=== PATIENT | female | born 1960 | race Caucasian/White ===

== ENCOUNTER 2017-03-18 10:32 | Inpatient (IN) | payer MEDICARE ==
--- NOTE | ~2017-03-18 | CN ---
Consultation Report [facility] [address] [place]. [address] NAME: DUGLAS HOWELL : 62 STATUS : ADM IN PAT#: [id number] AGE: 56 ADM/REG DATE : 03/18/17 MR#: [id number] REPORT SERV DATE: 03/18/17 DICTATED BY: ISAI CRUM DATE: 03/18/17 REPORT STATUS : Draft TRANSCRIBED BY: EVELYN DATE: 03/18/17 CONSULTATION. DATE OF CONSULTATION: 03/18/2017 REASON FOR CONSULT: Diabetes management. HISTORY OF PRESENT ILLNESS: This is a 56-year-old female with medical history of diabetes mellitus type 1, on insulin therapy, hypertension, dyslipidemia who presented to [facility] with complaints of chest pain. The patient was found to have elevated troponins and EKG changes concerning for NSTEMI. The patient was started on heparin therapy and transferred to [facility] in [place] for further evaluation. On arrival at [facility], the patient had a cardiac catheterization that shows multivessel coronary disease and was recommended to have a coronary artery bypass surgery. The Hospitalist Service was consulted to help manage diabetes. The patient reports she was diagnosed with diabetes several years ago. She had history of gestational diabetes several years after her last . She was found to have progressive elevated blood sugar, was started on metformin and Glucophage. The patient reports that blood sugar continued to remain elevated. She was transition from p.o. oral hypoglycemic to subcutaneous insulin. The patient reported that she takes Lantus insulin and exenatide at home for blood sugar control. She reports that her blood sugar ranges in the 150s to 200s at home. She denies any hypoglycemic symptoms. However, she endorses a history of polydipsia and nocturia. No reported significant weight loss. PAST MEDICAL HISTORY: 1. Diabetes mellitus type 2. 2. Hypertension. 3. Dyslipidemia. FAMILY HISTORY: Significant for coronary artery disease in a brother who was diagnosed when he was in his 40s. SOCIAL HISTORY: Denies smoking cigarettes, drinking alcohol, or illicit drug use. ALLERGIES: NO KNOWN DRUG ALLERGIES. HOME MEDICATIONS: 1. Lantus insulin 25 units at bedtime. 2. Bydureon extended release injection 2 mg subcutaneously q.7 days, last taken 03/11/2017. 3. Gabapentin 600 mg p.o. at bedtime. 4. Hydrochlorothiazide 25 mg p.o. daily. 5. Lisinopril 5 mg p.o. daily. Consultation Report [place] [address] [place]. [address] NAME: DUGLAS HOWELL : 62 STATUS : ADM IN PAT#: [id number] AGE: 56 ADM/REG DATE : 03/18/17 MR#: [id number] REPORT SERV DATE: 03/18/17 DICTATED BY: ISAI CRUM DATE: 03/18/17 REPORT STATUS : Draft TRANSCRIBED BY: MODFlor DATE: 03/18/17 6. Meloxicam 50 mg p.o. daily. 7. Simvastatin 40 mg p.o. daily. REVIEW OF SYSTEMS: A 12-point review of systems conducted, essentially negative. PHYSICAL EXAMINATION: VITAL SIGNS: Blood pressure 145/87, temperature 97.6, pulse 70 beats per minute, respiratory rate 20 cycles per minute. GENERAL: Not in any acute distress. HEENT: Extraocular muscles intact. Pupils equal, round, and reactive. Not pale. Anicteric. Neck supple. Oral mucosa moist. CHEST: Bilaterally symmetrical. Nontender. LUNGS: Clear to auscultation bilaterally. CARDIOVASCULAR: Regular rate and rhythm. S1, S2. No murmur, no rubs, no gallops. ABDOMEN: Obese, soft, nontender. EXTREMITIES: Lower extremities, no pedal edema. LABORATORY TEST: Glucose 271. Hematology: WBC 11.1, hemoglobin 13.2, hematocrit 41.2, platelets 244. Chemistry: Sodium 128, potassium 4.4, chloride 90, bicarb 20, creatinine 1.01, BUN 30, GFR 73, glucose , calcium 9.1, anion gap 23. Alkaline phosphatase 32, ALT 20, bilirubin 0.4. Please note that this above dictated laboratory data was from [facility]. No repeat labs at this time. ASSESSMENT AND PLAN: Diabetes mellitus type 2, on subcutaneous insulin therapy at home with hyperglycemia. Presently the patient's blood sugar has gradually trended down into the 150s. At this point, I will recommend to discontinue Bydureon and Lantus. We will switch patient to Levemir 18 units b.i.d., aspart 5 units t.i.d. with a level 2 corrective sliding scale. I will also recommend the patient's blood sugar to be monitored a.c. plus h.s., hypoglycemia protocol and placed on ADA 1800 calorie diet. The patient's labs, chemistry, compressive metabolic panel, CBC, and HbA1c will be repeated now. The Hospitalist Service will be happy to continue to follow the patient during the course of this admission for diabetes management. Thank you very much for this consult. IOO/MODL Isai Crum MD / [id number]
--- NOTE | ~2017-03-18 | CN ---
Consultation Report [facility] [address] [place]. [address] NAME: DUGLAS HOWELL : 62 STATUS : ADM IN PAT#: [id number] AGE: 56 ADM/REG DATE : 03/18/17 MR#: [id number] REPORT SERV DATE: 03/18/17 DICTATED BY: YENIFER BOONE DATE: 03/18/17 REPORT STATUS : Draft TRANSCRIBED BY: MODL DATE: 03/18/17 CONSULTATION DATE OF CONSULTATION: 03/18/2017 REASON FOR CONSULTATION: Recent non-ST elevation myocardial infarction, three-vessel coronary artery disease, consideration for urgent coronary artery bypass grafting. HISTORY OF PRESENT ILLNESS: This is a 56-year-old obese diabetic white female with history of hypertension, hyperlipidemia, and positive family history as risk factors for coronary artery disease. She reports that over the past several months, she has had exertional symptoms of chest discomfort, tightness, and pressure and discomfort in her shoulders. This resolves with rest. She admits to one episode of chest discomfort that awakened her. On the date of admission, she was walking and experienced chest discomfort with crescendo pain that was unrelieved with rest. When the pain continued past one and half hours, she drove herself to the emergency department at [facility], and there had EKG and lab work done that showed troponin I was elevated. She was hospitalized, Cardiology consultation was obtained, and echocardiography showed normal left ventricular function with ejection fraction 55%, trivial mitral and tricuspid regurgitation, trileaflet aortic valve, and left ventricular hypertrophy. She was transferred to [facility] for coronary arteriography today and this demonstrated significant flow-limiting three-vessel coronary artery disease, and we were asked to see for possible urgent coronary artery bypass grafting at this admission. This was discussed with the patient at length today. PAST MEDICAL HISTORY: 1. Insulin-dependent diabetes mellitus type 2. 2. Hypertension. 3. Hyperlipidemia. 4. Remote history of smoking one pack per day for 10 years, but quit 25 years. PRIOR SURGICAL HISTORY: Significant for cholecystectomy, appendectomy, hysterectomy, right total knee arthroplasty, anterior and posterior lumbar fusion, and recent excision of sebaceous cysts from her back. ALLERGIES: NONE KNOWN. MEDICATIONS: Include Bydureon extended release injection 2 mg subcu every 7 days, gabapentin 600 mg p.o. at bedtime, hydrochlorothiazide 25 mg p.o. daily, Lantus Insulin 25 units subcu at bedtime, lisinopril 5 mg p.o. daily, meloxicam 15 mg p.o. daily, multivitamins one tablet p.o. daily, Zocor 40 mg p.o. daily. Today, she had Lipitor added and nitroglycerin paste. SOCIAL HISTORY: She is , one daughter, and patient is currently a student in [employer]. She is a former smoker 1 pack per day for approximately 10 years, quit 25 years ago, does not use alcohol or illicits. Consultation Report [place] [id number] [place]. [address] NAME: DUGLAS HOWELL : 62 STATUS : ADM IN [facility]#: [id number] AGE: 56 ADM/REG DATE : 03/18/17 MR#: [id number] REPORT SERV DATE: 03/18/17 DICTATED BY: YENIFER BOONE DATE: 03/18/17 REPORT STATUS : Draft TRANSCRIBED BY: EVELYN DATE: 03/18/17 FAMILY HISTORY: Significant for brother with myocardial infarction at age 36. REVIEW OF SYSTEMS: GENERAL: Negative for any recent weight change, fevers, chills, or night sweats. Positive for excessive fatigue, exercise intolerance. ENT: Negative for diminished vision. Negative for cataracts or glaucoma. She denies any tinnitus or reduced auditory acuity. Denies dental problems. Denies any difficulty eating, chewing, or swallowing. RESPIRATORY: Positive for recent shortness of breath with her chest discomfort. Negative for lung problems. Negative for hemoptysis or chronic cough. CV: Positive for chest pain, negative for palpitations, negative for syncope or near syncope. Negative for heart murmur. Denies any feet or leg swelling. GI: Negative. : Negative. MUSCULOSKELETAL: Positive for her back surgery. Positive for right knee replacement. Otherwise, negative. ENDOCRINE: Positive for diabetes with insulin. Negative for thyroid problems. HEME/ONC: Negative. NEURO: Negative for syncope, near syncope. Negative for tremors. Negative for stroke or TIA symptoms. PHYSICAL EXAMINATION: GENERAL: She is a pleasant, obese white female, in no acute distress. VITAL SIGNS: Her height is 160.02 cm, weight 99.79 kg. Vital signs show blood pressure 168/82, temperature is 97.6, pulse 57 and regular, respirations 20 regular and unlabored, saturation 97% on 2 liters nasal cannula. HEENT: Normocephalic, atraumatic. Pupils are equal, round, and reactive to light and accommodation. Sclerae are clear, conjunctivae pink. Oral and buccal mucosa are pink and moist, and teeth are in good condition. Mallampati class 3 airway. NECK: Supple. No restricted range of motion. No carotid bruits. No jugular venous distention. CHEST: No deformity, no chest wall tenderness. Breath sounds are clear and equal bilaterally. BREASTS: Not examined. CV: Regular rate and rhythm without murmur or rub. No lower extremity edema or varicosities. ABDOMEN: Soft, obese, nontender with normoactive bowel sounds. No hepatosplenomegaly. /RECTAL: Declined. MUSCULOSKELETAL: No kyphoscoliosis, no asymmetry. NEUROLOGIC: She is alert and oriented to day, date, and situation. Speech is clear, fluent. No focal neurologic deficits, no tremors. SKIN, HAIR, AND NAILS: No lesions, masses, or rashes other than two sutured incisions in the mid back. Consultation Report [place] [id number] [facility] [place]. [address] NAME: DUGLAS HOWELL : 62 STATUS : ADM IN [facility]#: [id number] AGE: 56 ADM/REG DATE : 03/18/17 MR#: [id number] REPORT SERV DATE: 03/18/17 DICTATED BY: YENIFER BOONE DATE: 03/18/17 REPORT STATUS : Draft TRANSCRIBED BY: EVELYN DATE: 03/18/17 DATA: Her coronary arteriogram which I reviewed today showing three-vessel flow-limiting coronary artery disease. Echocardiogram results as above. Her EKG shows normal sinus rhythm and is otherwise normal. Troponin I at [place] was 3.86. Labs in [place] include hyponatremia of 128, potassium 4.6, CO2 of 20, chloride is 90, BUN 30, creatinine 1.01 and nonfasting glucose of 275. CBC shows WBCs slightly elevated 11.1, hemoglobin 13.2 g, hematocrit 41.2%, and platelets 224,000. IMPRESSION: Recent non-ST elevation myocardial infarction in a 56-year-old diabetic female with several risk factors for coronary artery disease. We were asked to see for possible coronary artery bypass grafting. This was discussed at length with the patient today. We talked about the surgery, usual perioperative course, indications, benefits, and serious risks which include but are not limited to, things such as bleeding, need for blood or blood product transfusion and their attendant risks, damage to the kidneys including kidney failure and dialysis, damage to the liver or the lungs, heart attack, stroke, abnormal heart rhythm, infection including deep sternal infection, mediastinitis, and even . The patient indicates her understanding and is willing to proceed. Tentatively, we will plan on doing her surgery Tuesday or Tuesday this coming week. Using [employer] database, risk profile was calculated that showed predicted risk of mortality is 0.812, morbidity or mortality 10.54%, and this was shared with the patient today. We appreciate very much the opportunity to participate in her care, and we will follow with you. DICTATED BY: Danya Oliveros/EVELYN Yenifer Boone M.D. / [id number] CC: MD Darrell Bowman M.D.
--- NOTE | ~2017-03-18 | DS ---
Discharge Summary [facility] [address] [place]. [address] NAME: DUGLAS HOWELL : 62 STATUS : DIS IN PAT#: [id number] AGE: 56 ADM/REG DATE : 03/18/17 MR#: [id number] REPORT SERV DATE: 04/05/17 DICTATED BY: KESHA BAKER DATE: 04/04/17 REPORT STATUS : Draft TRANSCRIBED BY: MODFlor DATE: 04/04/17 Data Collection from hospitalization DISCHARGE DIAGNOSES: 1. Coronary artery disease, status post coronary artery bypass grafting. 2. Hypertension. 3. Hyperlipidemia. 4. Diabetes mellitus. 5. Obesity. CONSULTATIONS: 1. Abebe Boone M.D. 2. Isai Bruce MD. PROCEDURES PERFORMED: 1. Cardiac catheterization on 03/18/2017. 2. Urgent coronary artery bypass grafting x5 with left internal mammary artery to the left anterior descending artery, reverse saphenous vein graft placed to the second diagonal, reverse vein graft placed to the second obtuse marginal, reverse saphenous vein graft sequenced to the posterior descending artery and posterolateral branch vessel; endoscopic vein harvest of the saphenous vein from the right leg; transesophageal echocardiography on 03/22/2017. 3. Carotid blood flow study on 03/19/2017. MEDICATIONS: Vitamin C 1000 mg twice a day, aspirin 81 mg daily, Lipitor 40 mg at bedtime, Coreg 3.125 mg twice a day, Bydureon 2 mg subcutaneously every seven days, Neurontin 600 mg at bedtime, Lantus 18 units subcutaneously twice a day, Prinivil 5 mg daily, multivitamins one tablet daily, Percocet 10/325 half to one tablet every four hours as needed, and Senokot two tablets twice a day as needed. She was instructed not to continue hydrochlorothiazide, Zocor, or Mobic. CONDITION AT DISCHARGE: Stable. DISPOSITION: The patient was discharged home on an 1800-calorie, low-cholesterol, low- sodium, mechanical soft diet with activities as instructed. She would follow up with John Rivas on 05/26/2017. She would follow up with Dr. Emeterio Fischer on 05/06/2017. She would follow up with Dr. Darrell Contreras Jr, on 04/06/2017. She would undergo outpatient diabetic education as instructed. HOSPITAL COURSE: This is a 56-year-old obese diabetic female who has a history of hypertension, hyperlipidemia, and a positive family history as risk factors for coronary artery disease. She said that over the past several months she has had exertional symptoms of chest discomfort, tightness, and pressure as well as discomfort in her shoulders. This would resolve with rest. She did admit to one episode of chest discomfort that awakened her. On the date of this admission, she was walking and experienced chest discomfort with crescendo pain that was unrelieved with rest. When the pain was continued past one and half hours, she drove herself to the emergency department at [facility], and there had an EKG and lab work done which revealed troponin I was elevated. She was hospitalized and cardiac Discharge Summary [address] [address] NAME: DUGLAS HOWELL : 62 STATUS : DIS IN PAT#: [id number] AGE: 56 ADM/REG DATE : 03/18/17 MR#: [id number] REPORT SERV DATE: 04/05/17 DICTATED BY: KESHA BAKER DATE: 04/04/17 REPORT STATUS : Draft TRANSCRIBED BY: EVELYN DATE: 04/04/17 consultation had been obtained and echocardiography showed normal left ventricular function with an ejection fraction of 55%, trivial mitral and tricuspid regurgitation, trileaflet aortic valve and left ventricular hypertrophy. It was felt that she would need to undergo coronary arteriography. She was transferred to [facility] and admitted for further evaluation and treatment. Upon admission, she was taken to the cardiac cardiac catheterization technician where she underwent the above- mentioned procedure by Dr. Cadena. She tolerated this well, and there were no complications. Following this, she was seen by Dr. Abebe Boone. Coronary arteriography demonstrated significant flow-limiting three-vessel coronary artery disease. It was felt that the patient would need to undergo possible urgent coronary artery bypass grafting. The patient was also seen by Dr. Isai Bruce regarding diabetes management. She had been diagnosed with diabetes several years ago. She had a history of gestational diabetes several years after her last . She was found to have progressive elevated blood sugars. She had been started on metformin and Glucophage. She reports that her blood sugars continued to remain elevated. She was transitioned from oral hypoglycemic to subcutaneous insulin. She reported that she takes Lantus insulin and Exenatide at home for blood sugar control. She said that her blood sugars range in the 150s to 200s at home. She denied any hypoglycemic symptoms. She does have a history of polydipsia and nocturia. Bydureon and Lantus were discontinued. The patient was switched to Levemir. The next day, she had no new complaints. She had no edema. Heparin drip continued. She remained on aspirin and beta-kinsey. We encouraged her to ambulate. A carotid blood flow study was performed. VIDHI inhibitor was continued. Plans were being made to proceed with surgical intervention. Hemoglobin A1c was 11.1. On 03/22/2017, she was taken to the operating room by Dr. Abebe Boone where she underwent the above-mentioned procedure. She tolerated this well, and there were no complications. On postop day #1, she was in a normal sinus rhythm. She had no edema. Her incisions looked okay. Chest tubes were going to be removed. White count was 17.6. She did have an episode of emesis that morning. She was being transitioned to Levemir and NovoLog and sliding scale insulin. She underwent diabetes education. The next day, she was up sitting in a chair. She said she felt well. She was ambulating and eating okay. We encouraged her to mobilize and use incentive spirometry. Diabetes education continued. On 03/25/2017, she had no chest pain, nausea, or vomiting. Aspirin, statin agent, beta-kinsey, and VIDHI inhibitor were continued. She was ambulating well. She had no edema. Her incisions looked okay. Discharge instructions were given. Due to her improved and stable condition, she was discharged home with the above-stated instructions. Information collected by: Annette Bishop I submit the above information as my discharge summary. TG/MODL Kesha Baker MD / [id number] Discharge Summary [address] [address] NAME: DUGLAS HOWELL : 62 STATUS : DIS IN PAT#: [id number] AGE: 56 ADM/REG DATE : 03/18/17 MR#: [id number] REPORT SERV DATE: 04/05/17 DICTATED BY: KESHA BAKER DATE: 04/04/17 REPORT STATUS : Draft TRANSCRIBED BY: EVELYN DATE: 04/04/17 CC: MD Darrell Bowman M.D. James Zellner, M.D.
--- NOTE | ~2017-03-18 | OP ---
Record Of Operation [facility] [address] [place]. [address] NAME: DUGLAS HOWELL : 62 STATUS : ADM IN PAT#: [id number] AGE: 56 ADM/REG DATE : 03/18/17 MR#: [id number] REPORT SERV DATE: 03/23/17 DICTATED BY: YENIFER BOONE DATE: 03/22/17 REPORT STATUS : Draft TRANSCRIBED BY: MODL DATE: 03/22/17 DATE OF PROCEDURE: 03/22/2017 PREOPERATIVE DIAGNOSES: 1. Coronary artery disease with jrt-US-gygihhvqt myocardial infarction. 2. Type 2 insulin-dependent diabetes mellitus. 3. Hypertension. 4. Hyperlipidemia. 5. Morbid obesity (BMI greater than 40). POSTOPERATIVE DIAGNOSES: 1. Coronary artery disease with gap-FD-lgyttxutj myocardial infarction. 2. Type 2 insulin-dependent diabetes mellitus. 3. Hypertension. 4. Hyperlipidemia. 5. Morbid obesity (BMI greater than 40). PROCEDURES PERFORMED: 1. Urgent coronary artery bypass grafting x5, left internal mammary artery placed to left anterior descending, reverse saphenous vein graft placed to the second diagonal, reverse saphenous vein graft placed to the second obtuse marginal, reverse saphenous vein graft sequenced to the posterior descending artery and posterolateral branch vessel. 2. Endoscopic vein harvest, saphenous vein from the right leg. 3. Transesophageal echocardiography. SURGEON: Yenifer Boone M.D. ASSISTANTS: Godfrey Vargas and Dayron Lewis. ANESTHESIA: General with Dr. Roberson. NIGHT TIME BABYSITTER: Dr. Holland and Dr. Emeterio Fischer. INDICATION: This is a 56-year-old hypertensive, diabetic, obese female, who presented to the emergency room with chest pain that began 24 hours prior to presentation on 03/17/2017 at [facility]. There was heaviness in the discomfort and radiation to her arms and neck. There were some diaphoresis and dyspnea. Chest discomfort would worsen with exertion, but then resolve with rest. She came to the emergency room because she started having chest pain even at rest. In the emergency room at [facility], her cardiac isoenzymes were elevated. She had no ST elevation and she was admitted with non-ST elevation myocardial infarction and medically stabilized. She was then transferred to [facility] for urgent cardiac catheterization. This was performed and demonstrated significant and diffuse three-vessel coronary artery disease. Ventricular function was good with an ejection fraction of greater than 55%. No significant valvular pathology. We were asked to see the patient for possible urgent revascularization. Echocardiography demonstrated moderate Record Of Operation [address] [address] NAME: DUGLAS HOWELL : 62 STATUS : ADM IN PAT#: [id number] AGE: 56 ADM/REG DATE : 03/18/17 MR#: [id number] REPORT SERV DATE: 03/23/17 DICTATED BY: YENIFER BOONE DATE: 03/22/17 REPORT STATUS : Draft TRANSCRIBED BY: MODL DATE: 03/22/17 hypokinesis in the apicolateral segment. Hemoglobin A1c was markedly elevated at 11. We discussed possible coronary bypass grafting with the patient and family, and they wished to proceed. STS predicted mortality of less than 1%, morbidity mortality of 11% were discussed with the family. FINDINGS AT OPERATION: 1. Cross-clamp time of 74 minutes, total pump time 85 minutes. 2. LAD was a 1.5 mm heavily diseased vessel. A 2.5 mm BOYER was anastomosed to it with fair runoff. 3. The second diagonal was 1.5 mm and heavily diseased. A 3.5 mm RSVG was anastomosed to it with fair runoff. 4. The second obtuse marginal was 1.5 mm and also heavily diseased. A 3.5 mm RSVG was anastomosed to it with rather poor runoff. This vessel had calcific changes and had bypass very distally. 5. The posterior descending artery was 0.5 mm moderately diseased. A 4 mm RSVG was anastomosed to it in a drfm-cy-jowp fashion with good runoff. 6. The posterolateral branch vessel was less than 1.5 mm and mildly diseased. The end of the same 4 mm RSVG was anastomosed to it with fair runoff. 7. All targets were small and diffusely diseased with calcific atherosclerosis. 8. The vein quality was good and all grafts had good Doppler signal at the end of the case. 9. AIDAN demonstrated good ventricular function at the end of the operation. There was no surgically significant valvular pathology. PATHOLOGIC SPECIMENS: None. DESCRIPTION OF PROCEDURE: The patient was brought to the operating suite where general anesthesia was induced. Airway was secured with an endotracheal tube. Lines secured by Anesthesia. Love catheter was placed. The patient's chest, abdomen, groin, and legs prepped with Hibiclens and ChloraPrep and draped with Ioban sterile sheets. AIDAN probe was placed by Dr. Roberson and examination carried out as discussed above. The saphenous vein was harvested from the right leg using endoscopic technique. Briefly, the vein was cut directly down upon through 2-cm incision placed medial aspect of the right knee. Then, using VasoView trocars, the vessel was dissected from the surrounding subcutaneous tissue and fat. The side branches were identified, ligated, and divided with cautery. Once adequate length of vein had been dissected, a counterincision was made up in the groin and in the lower leg where the vein was ligated, divided, and brought through the knee incision. The vein quality was good and the leg was made hemostatic and closed in layers of absorbable suture and skin closed in subcuticular fashion. Then, a midline sternal incision was made and the sternum opened with a saw. The left hemithorax was elevated and the endothoracic fascia was incised. Side branches of the STEFANIE were clipped and divided. Once the STEFANIE was completely dissected, the patient was anticoagulated with heparin and chest tube placed in the left pleural cavity. The STEFANIE was clipped and divided distally. There was good flow through the STEFANIE and its pedicle was infiltrated with papaverine. Record Of Operation [facility] [address] [place]. [address] NAME: DUGLAS HOWELL : 62 STATUS : ADM IN [facility]#: [id number] AGE: 56 ADM/REG DATE : 03/18/17 MR#: [id number] REPORT SERV DATE: 03/23/17 DICTATED BY: YENIFER BOONE DATE: 03/22/17 REPORT STATUS : Draft TRANSCRIBED BY: MODL DATE: 03/22/17 Next, the Gilbert retractor was placed and the pericardium opened from the innominate vein to the diaphragm. It was T'd and tacked to side of the chest wall. Cannulation pursestring sutures were placed and cannulation was carried out in routine manner. A retrograde cardioplegia cannula was placed in the coronary sinus. When all was in readiness, the patient was placed on cardiopulmonary bypass. The distal targets were marked out on the heart as described in the findings. The amount of calcification in the small vessels and distal extent of calcification was remarkable. Then, a heart support was placed. The aorta was crossclamped and an initial dose of cold blood cardioplegia solution was given in a combination of antegrade and retrograde fashion, then in a retrograde manner following proximal anastomoses. Following the first dose cardioplegia, the heart was positioned for the PDA graft. Arteriotomy was made. The vein graft was brought to the field as planned for sequential grafting and opened proximally. A [id number] saphenous coronary anastomosis was constructed with 7-0 Prolene. Then, the posterolateral branch vessel was opened. The end of the sequential graft was fashioned for this site and anastomosed it in an end-to-side fashion with a running suture of 7-0 Prolene. This vein graft was then measured to the right side of the ascending aorta where it was divided. We then positioned the heart for the obtuse marginal graft. Another arteriotomy was made and the vein graft trimmed and anastomosed to it with 7-0 Prolene. This vein graft was measured back to the left side of the ascending aorta, where it was divided. Next, the proximal ends of the two vein grafts were anastomosed to 4.5 mm punch aortotomy with 6-0 Prolene. Another dose of cardioplegia was given and we positioned the heart for the diagonal graft. Arteriotomy was made. The vein graft trimmed and anastomosed to it with 7-0 Prolene. This vein graft was measured back to the left side of the ascending aorta where it was divided and later anastomosed to a 4.5 mm punch aortotomy with 6-0 Prolene. We then positioned the heart for the LAD graft. Warming was begun. Arteriotomy was made in the soft spot at the mid to distal LAD. The LAD was calcified along its epicardial surface of the heart. The STEFANIE was then brought out of the left chest through a notch in the pericardium. The STEFANIE was opened and anastomosed to the LAD with running suture of 8-0 Prolene. The endothoracic fascia was tacked to the epicardium. The patient was placed in Trendelenburg and final dose of warm blood cardioplegia was given in a retrograde fashion. Ventricular and atrial pacing wires were placed. Following the last dose of cardioplegia and deairing of the aorta, the aortic cross clamp was removed. The distal and proximal anastomoses were inspected and made hemostatic. Doppler demonstrated good flow through the grafts. The patient resumed a sinus rhythm spontaneously. Ventilation was begun. When the heart demonstrated good contractility, it was allowed to fill and eject. When deairing was completed, the patient was taken out of Trendelenburg and the ascending aortic vent removed and these pursestring sutures tied and reinforced. The patient was then weaned from cardiopulmonary bypass with minimal inotropic support. The Record Of Operation [facility] [id number] [place]. [address] NAME: DUGLAS HOWELL : 62 STATUS : ADM IN PAT#: [id number] AGE: 56 ADM/REG DATE : 03/18/17 MR#: [id number] REPORT SERV DATE: 03/23/17 DICTATED BY: YENIFER BOONE DATE: 03/22/17 REPORT STATUS : Draft TRANSCRIBED BY: EVELYN DATE: 03/22/17 venous cannula was removed and these pursestring sutures tied. AIDAN examination demonstrated good ventricular function with no significant valvular pathology. Protamine was then administered by Anesthesia and following a period of hemodynamic stability, the aortic cannula was removed and these pursestring sutures tied and reinforced. The patient continued to do well and chest irrigated copiously with saline. Meticulous hemostasis was obtained. Hemasorb was placed along the cut edge of the sternum. Once hemostasis was assured, the pericardium was draped over the anterior surface of the heart and tacked into position. Doppler demonstrated good flow through the grafts following protamine administration. Then, chest tubes were placed and the sternum reapproximated with eight sternal wires. The clavipectoral fascia and linea alba were closed with #1 Stratafix. The subcutaneous tissue was closed with Stratafix and the skin closed in subcuticular fashion. The patient tolerated the procedure well. There were no complications. Sponge and needle counts were correct. DISPOSITION: The patient left intubated, sedated, and transported to the intensive care unit in stable condition. SEVERINO/EVELYN Yenifer Boone M.D. / [id number] CC: MD Darrell Bowman M.D. Emeterio Fischer M.D. Salvador Holland MD
[2017-03-18] MEDS ORDERED: BYDUREON2 MG SQ (14:56)
[2017-03-18] MEDS ORDERED: HYDROCHLOROT25 MG PO (14:57)
[2017-03-18] MEDS ORDERED: LANTUS SC (14:57)
[2017-03-18] MEDS ORDERED: NEUR600 PO (14:57)
[2017-03-18] MEDS ORDERED: ZOCOR40 PO (14:58)
[2017-03-18] MEDS ORDERED: MOBIC15 MG PO (14:58)
[2017-03-18] MEDS ORDERED: PRIN5 PO (14:58)
[2017-03-18] MEDS ORDERED: MULTIPLE VIT PO (15:00)
[2017-03-18 18:19] LABS: INTERNATIONAL NORMAL RATI 1.2 UNITS (-); PROTIME (NOT ORD) 15.5 SEC (12.0-14.5)
[2017-03-18 18:34] LABS: PARTIAL THROMBO TIME > 150.0 SEC (22.5-37.2)
[2017-03-18 21:13] LABS: BASOPHILS 0 %; EOSINOPHILS 0.1 %; EOSINOPHILS ABSOLUTE 0.01 10/3/uL (0.0-0.53); HEMATOCRIT 35.1 % (36.0-48.0); HEMOGLOBIN 11.5 g/dL (12.0-16.0); IMMATURE GRANULOCYTES 0.4 %; IMMATURE GRANULOCYTES ABSOLUTE 0.05 10/3/uL (0.0-0.11); LYMPHOCYTES 15.8 %; LYMPHOCYTES ABSOLUTE 1.89 10/3/uL (0.67-4.30); MEAN CORPUS HGB CONC 32.8 g/dL (32.0-36.0); MEAN CORPUSCULAR HEMOGLOB 26.5 pg (26.0-34.0); MEAN CORPUSCULAR VOLUME 80.9 fL (80-100); MEAN PLATELET VOLUME 9.2 fL (9.2-13.0); MONOCYTES 2.7 %; MONOCYTES ABSOLUTE 0.32 10/3/uL (0.21-1.20); NEUTROPHILS ABSOLUTE 9.67 10/3/uL (2.02-8.40); PLATELET COUNT 221 10/3/uL (150-400); RBC DISTRIBUTION WIDTH 15.2 % (12.0-16.0); RED CELL COUNT 4.34 10/6/uL (4.0-5.6); WHITE BLOOD CELLS 11.9 10/3/uL (4.5-10.5)
[2017-03-18 21:14] LABS: MANUAL DIFF NO %
[2017-03-18 21:42] LABS: A/G RATIO 0.9 (0.7-1.9); ALBUMIN 3.1 G/DL (3.5-5.0); ALKALINE PHOSPHATASE 83 U/L (45-117); BUN (BLOOD UREA NITROGEN) 22 MG/DL (6-23); CALCIUM, SERUM 8.3 MG/DL (8.5-10.4); CHLORIDE, SERUM 103 MMOL/L (96-112); CO2 (CARBON DIOXIDE) 24 MMOL/L (24-34); CREATININE 0.78 MG/DL (0.55-1.02); FREE T4 0.96 NG/DL (0.76-1.46); GFR AFRICAN AMERICAN 99 ML/MIN (>=60); GFR NON AFRICAN AMERICAN 86 ML/MIN (>=60); GLOBULIN 3.5 G/DL (2.5-4.1); GLUCOSE, SERUM 263 MG/DL (60-99); POTASSIUM, SERUM 4.2 MMOL/L (3.5-5.3); SGOT(AST) 36 U/L (5-40); SGPT(ALT) 45 U/L (5-65); SODIUM, SERUM 136 MMOL/L (135-148); TOTAL BILIRUBIN 0.2 MG/DL (0-1.2); TOTAL PROTEIN 6.6 G/DL (6.0-8.5)
[2017-03-18 21:44] LABS: ASCORBIC ACID (UR NOT ORDER) NEG (NEG); BILIRUBIN, URINE NEGATIVE (NEG); KETONE, URINE NEGATIVE (NEG); LEUKOCYTE ESTERASE(NOT OR NEG (NEG); WBC (NOT ORDERED) (RFLEX) 1 (0-5)
[2017-03-19 02:24] LABS: BASOPHILS 0 %; EOSINOPHILS 0 %; HEMATOCRIT 34.4 % (36.0-48.0); HEMOGLOBIN 11.3 g/dL (12.0-16.0); IMMATURE GRANULOCYTES 0.5 %; IMMATURE GRANULOCYTES ABSOLUTE 0.05 10/3/uL (0.0-0.11); LYMPHOCYTES 19.3 %; LYMPHOCYTES ABSOLUTE 1.83 10/3/uL (0.67-4.30); MANUAL DIFF NO %; MEAN CORPUS HGB CONC 32.8 g/dL (32.0-36.0); MEAN CORPUSCULAR HEMOGLOB 27.1 pg (26.0-34.0); MEAN CORPUSCULAR VOLUME 82.5 fL (80-100); MONOCYTES 4.4 %; MONOCYTES ABSOLUTE 0.42 10/3/uL (0.21-1.20); NEUTROPHILS 75.8 %; NEUTROPHILS ABSOLUTE 7.16 10/3/uL (2.02-8.40); PLATELET COUNT 208 10/3/uL (150-400); RED CELL COUNT 4.17 10/6/uL (4.0-5.6); WHITE BLOOD CELLS 9.5 10/3/uL (4.5-10.5)
[2017-03-19 02:31] LABS: BUN (BLOOD UREA NITROGEN) 21 MG/DL (6-23); CALCIUM, SERUM 8.1 MG/DL (8.5-10.4); CHLORIDE, SERUM 106 MMOL/L (96-112); CO2 (CARBON DIOXIDE) 28 MMOL/L (24-34); CREATININE 0.77 MG/DL (0.55-1.02); GFR AFRICAN AMERICAN 101 ML/MIN (>=60); GFR NON AFRICAN AMERICAN 87 ML/MIN (>=60); POTASSIUM, SERUM 4.3 MMOL/L (3.5-5.3); SODIUM, SERUM 142 MMOL/L (135-148)
[2017-03-19 02:32] LABS: GLUCOSE, SERUM 203 MG/DL (60-99); TROPONIN I 1.81 NG/ML (<0.05)
[2017-03-21 04:46] LABS: BASOPHILS 0.1 %; BASOPHILS ABSOLUTE 0.01 10/3/uL (0.0-0.16); EOSINOPHILS 1.3 %; EOSINOPHILS ABSOLUTE 0.13 10/3/uL (0.0-0.53); HEMOGLOBIN 13.5 g/dL (12.0-16.0); IMMATURE GRANULOCYTES 1.6 %; IMMATURE GRANULOCYTES ABSOLUTE 0.17 10/3/uL (0.0-0.11); LYMPHOCYTES 26.6 %; LYMPHOCYTES ABSOLUTE 2.75 10/3/uL (0.67-4.30); MEAN CORPUS HGB CONC 33.3 g/dL (32.0-36.0); MEAN CORPUSCULAR HEMOGLOB 26.9 pg (26.0-34.0); MEAN CORPUSCULAR VOLUME 80.9 fL (80-100); MEAN PLATELET VOLUME 9.1 fL (9.2-13.0); MONOCYTES 5.5 %; MONOCYTES ABSOLUTE 0.57 10/3/uL (0.21-1.20); NEUTROPHILS 64.9 %; NEUTROPHILS ABSOLUTE 6.72 10/3/uL (2.02-8.40); PLATELET COUNT 267 10/3/uL (150-400); RBC DISTRIBUTION WIDTH 14.9 % (12.0-16.0); WHITE BLOOD CELLS 10.4 10/3/uL (4.5-10.5)
[2017-03-21 04:52] LABS: HEMATOCRIT 40.6 % (36.0-48.0); MANUAL DIFF NO %; RED CELL COUNT 5.02 10/6/uL (4.0-5.6)
[2017-03-21 05:01] LABS: BUN (BLOOD UREA NITROGEN) 22 MG/DL (6-23); CHLORIDE, SERUM 102 MMOL/L (96-112); CO2 (CARBON DIOXIDE) 26 MMOL/L (24-34); CREATININE 0.87 MG/DL (0.55-1.02); GFR AFRICAN AMERICAN 87 ML/MIN (>=60); GFR NON AFRICAN AMERICAN 75 ML/MIN (>=60); GLUCOSE, SERUM 241 MG/DL (60-99); SODIUM, SERUM 138 MMOL/L (135-148)
[2017-03-22 04:57] LABS: BASOPHILS 0.2 %; BASOPHILS ABSOLUTE 0.03 10/3/uL (0.0-0.16); EOSINOPHILS 1.4 %; HEMATOCRIT 40.3 % (36.0-48.0); HEMOGLOBIN 13.5 g/dL (12.0-16.0); IMMATURE GRANULOCYTES 1.7 %; IMMATURE GRANULOCYTES ABSOLUTE 0.24 10/3/uL (0.0-0.11); LYMPHOCYTES 24.4 %; LYMPHOCYTES ABSOLUTE 3.38 10/3/uL (0.67-4.30); MANUAL DIFF NO %; MEAN CORPUS HGB CONC 33.5 g/dL (32.0-36.0); MEAN CORPUSCULAR HEMOGLOB 26.8 pg (26.0-34.0); MEAN CORPUSCULAR VOLUME 80.1 fL (80-100); MEAN PLATELET VOLUME 9.4 fL (9.2-13.0); MONOCYTES 4.9 %; MONOCYTES ABSOLUTE 0.68 10/3/uL (0.21-1.20); NEUTROPHILS 67.4 %; PLATELET COUNT 273 10/3/uL (150-400); RBC DISTRIBUTION WIDTH 15.2 % (12.0-16.0); RED CELL COUNT 5.03 10/6/uL (4.0-5.6); WHITE BLOOD CELLS 13.8 10/3/uL (4.5-10.5)
[2017-03-22 05:04] LABS: INTERNATIONAL NORMAL RATI 1.1 UNITS (-); PROTIME (NOT ORD) 14.2 SEC (12.0-14.5)
[2017-03-22 05:05] LABS: PARTIAL THROMBO TIME 98.9 SEC (22.5-37.2)
[2017-03-22 05:15] LABS: % IRON SAT 15 % (20-50); A/G RATIO 0.8 (0.7-1.9); ALBUMIN 3.1 G/DL (3.5-5.0); CALCIUM, SERUM 9.1 MG/DL (8.5-10.4); CHLORIDE, SERUM 100 MMOL/L (96-112); CO2 (CARBON DIOXIDE) 24 MMOL/L (24-34); CREATININE 0.91 MG/DL (0.55-1.02); GFR AFRICAN AMERICAN 82 ML/MIN (>=60); GFR NON AFRICAN AMERICAN 71 ML/MIN (>=60); GLOBULIN 3.9 G/DL (2.5-4.1); GLUCOSE, SERUM 262 MG/DL (60-99); IRON BINDING CAPACITY 382 MCG/DL (225-410); IRON, SERUM 59 MCG/DL (35-150); SGOT(AST) 17 U/L (5-40); SGPT(ALT) 44 U/L (5-65); SODIUM, SERUM 135 MMOL/L (135-148); TOTAL BILIRUBIN 0.5 MG/DL (0-1.2)
[2017-03-22 05:16] LABS: ALKALINE PHOSPHATASE 100 U/L (45-117); BUN (BLOOD UREA NITROGEN) 26 MG/DL (6-23)
[2017-03-22 21:06] LABS: BE (BASE EXCESS) -4.8 MEQ/L (0 +/- 2.5); CARBOXYHEMOGLOBIN 0.3 % (0-3); HCO3 (ACTUAL BICARBONATE) 19.2 MEQ/L (23-27); HEMOBLOGIN CONTENT 11.5 G/DL (12-16); INSTRUMENT SERIAL # 11843; METHEMOGLOBIN 0.4 % (0-3); MODE SIMV; O2 CONTENT 15.8 VOL% (18-24); OPERATOR ID 16469; PCO2 (CO2 TENSION) 32 MMHG (35-45); PO2 (O2 TENSION) 110 MMHG (79-93); SAMPLE Arterial; TIDAL VOLUME 700 ML; pH 7.39 (7.37-7.43)
[2017-03-22 21:19] LABS: HEMOGLOBIN 10.8 g/dL (12.0-16.0); PLATELET COUNT 199 10/3/uL (150-400)
[2017-03-22 21:21] LABS: INTERNATIONAL NORMAL RATI 1.3 UNITS (-); PARTIAL THROMBO TIME 30.7 SEC (22.5-37.2); PROTIME (NOT ORD) 16.1 SEC (12.0-14.5)
[2017-03-22 21:25] LABS: BUN (BLOOD UREA NITROGEN) 25 MG/DL (6-23); CALCIUM, SERUM 8.6 MG/DL (8.5-10.4); CHLORIDE, SERUM 104 MMOL/L (96-112); CO2 (CARBON DIOXIDE) 23 MMOL/L (24-34); CREATININE 0.98 MG/DL (0.55-1.02); GFR AFRICAN AMERICAN 75 ML/MIN (>=60); GFR NON AFRICAN AMERICAN 65 ML/MIN (>=60); GLUCOSE, SERUM 143 MG/DL (60-99); POTASSIUM, SERUM 3.9 MMOL/L (3.5-5.3); SODIUM, SERUM 138 MMOL/L (135-148)
[2017-03-23 02:27] LABS: BE (BASE EXCESS) -7.2 MEQ/L (0 +/- 2.5); CARBOXYHEMOGLOBIN 0.3 % (0-3); DEVICE NC; HCO3 (ACTUAL BICARBONATE) 17.4 MEQ/L (23-27); HEMOBLOGIN CONTENT 13.3 G/DL (12-16); INSTRUMENT SERIAL # 11843; METHEMOGLOBIN 0.4 % (0-3); O2 CONTENT 18.1 VOL% (18-24); OPERATOR ID 16469; PCO2 (CO2 TENSION) 33 MMHG (35-45); PO2 (O2 TENSION) 101 MMHG (79-93); SAMPLE Arterial; pH 7.35 (7.37-7.43)
[2017-03-23 03:33] LABS: BASOPHILS 0.1 %; BASOPHILS ABSOLUTE 0.01 10/3/uL (0.0-0.16); EOSINOPHILS 0 %; HEMOGLOBIN 12.3 g/dL (12.0-16.0); IMMATURE GRANULOCYTES 1.1 %; LYMPHOCYTES 7.4 %; MEAN CORPUS HGB CONC 33.7 g/dL (32.0-36.0); MONOCYTES 1.7 %; NEUTROPHILS 89.7 %; PLATELET COUNT 197 10/3/uL (150-400); RBC DISTRIBUTION WIDTH 14.9 % (12.0-16.0); RED CELL COUNT 4.56 10/6/uL (4.0-5.6); WHITE BLOOD CELLS 17.6 10/3/uL (4.5-10.5)
[2017-03-23 03:35] LABS: HEMATOCRIT 36.5 % (36.0-48.0); MANUAL DIFF NO %
[2017-03-23 03:39] LABS: INTERNATIONAL NORMAL RATI 1.2 UNITS (-); PROTIME (NOT ORD) 15.5 SEC (12.0-14.5)
[2017-03-23 03:44] LABS: BUN (BLOOD UREA NITROGEN) 25 MG/DL (6-23); CALCIUM, SERUM 7.8 MG/DL (8.5-10.4); CHLORIDE, SERUM 111 MMOL/L (96-112); CO2 (CARBON DIOXIDE) 21 MMOL/L (24-34); CREATININE 0.71 MG/DL (0.55-1.02); GFR AFRICAN AMERICAN 111 ML/MIN (>=60); GFR NON AFRICAN AMERICAN 96 ML/MIN (>=60); GLUCOSE, SERUM 114 MG/DL (60-99); POTASSIUM, SERUM 3.9 MMOL/L (3.5-5.3); SODIUM, SERUM 142 MMOL/L (135-148)
[2017-03-23 16:55] LABS: POTASSIUM, SERUM 4.1 MMOL/L (3.5-5.3)
[2017-03-23 16:59] LABS: HEMATOCRIT 37.9 % (36.0-48.0); HEMOGLOBIN 12.5 g/dL (12.0-16.0)
[2017-03-24 04:21] LABS: BASOPHILS 0.1 %; BASOPHILS ABSOLUTE 0.01 10/3/uL (0.0-0.16); EOSINOPHILS 0 %; HEMOGLOBIN 11.2 g/dL (12.0-16.0); IMMATURE GRANULOCYTES 0.7 %; IMMATURE GRANULOCYTES ABSOLUTE 0.09 10/3/uL (0.0-0.11); LYMPHOCYTES 12.1 %; LYMPHOCYTES ABSOLUTE 1.47 10/3/uL (0.67-4.30); MEAN CORPUS HGB CONC 33.3 g/dL (32.0-36.0); MEAN CORPUSCULAR HEMOGLOB 27.2 pg (26.0-34.0); MEAN CORPUSCULAR VOLUME 81.6 fL (80-100); MEAN PLATELET VOLUME 9.9 fL (9.2-13.0); MONOCYTES 7.4 %; NEUTROPHILS 79.7 %; PLATELET COUNT 162 10/3/uL (150-400); RBC DISTRIBUTION WIDTH 15.4 % (12.0-16.0); RED CELL COUNT 4.12 10/6/uL (4.0-5.6); WHITE BLOOD CELLS 12.2 10/3/uL (4.5-10.5)
[2017-03-24 04:22] LABS: HEMATOCRIT 33.6 % (36.0-48.0); MANUAL DIFF NO %
[2017-03-24 04:30] LABS: BUN (BLOOD UREA NITROGEN) 26 MG/DL (6-23); CALCIUM, SERUM 7.8 MG/DL (8.5-10.4); CHLORIDE, SERUM 103 MMOL/L (96-112); CO2 (CARBON DIOXIDE) 23 MMOL/L (24-34); CREATININE 0.73 MG/DL (0.55-1.02); GFR AFRICAN AMERICAN 107 ML/MIN (>=60); GFR NON AFRICAN AMERICAN 93 ML/MIN (>=60); POTASSIUM, SERUM 4.5 MMOL/L (3.5-5.3); SODIUM, SERUM 137 MMOL/L (135-148)
[2017-03-24 04:34] LABS: GLUCOSE, SERUM 201 MG/DL (60-99)
[2017-03-25 05:10] LABS: BASOPHILS 0.1 %; BASOPHILS ABSOLUTE 0.01 10/3/uL (0.0-0.16); EOSINOPHILS 0.7 %; EOSINOPHILS ABSOLUTE 0.07 10/3/uL (0.0-0.53); HEMATOCRIT 35.2 % (36.0-48.0); HEMOGLOBIN 11.8 g/dL (12.0-16.0); IMMATURE GRANULOCYTES 0.7 %; IMMATURE GRANULOCYTES ABSOLUTE 0.07 10/3/uL (0.0-0.11); LYMPHOCYTES 18.2 %; LYMPHOCYTES ABSOLUTE 1.75 10/3/uL (0.67-4.30); MEAN CORPUS HGB CONC 33.5 g/dL (32.0-36.0); MEAN CORPUSCULAR HEMOGLOB 27.2 pg (26.0-34.0); MEAN CORPUSCULAR VOLUME 81.1 fL (80-100); MEAN PLATELET VOLUME 9.4 fL (9.2-13.0); MONOCYTES ABSOLUTE 0.67 10/3/uL (0.21-1.20); NEUTROPHILS 73.3 %; NEUTROPHILS ABSOLUTE 7.04 10/3/uL (2.02-8.40); PLATELET COUNT 169 10/3/uL (150-400); RBC DISTRIBUTION WIDTH 15.4 % (12.0-16.0); RED CELL COUNT 4.34 10/6/uL (4.0-5.6); WHITE BLOOD CELLS 9.6 10/3/uL (4.5-10.5)
[2017-03-25 05:11] LABS: BUN (BLOOD UREA NITROGEN) 28 MG/DL (6-23); CALCIUM, SERUM 8.4 MG/DL (8.5-10.4); CHLORIDE, SERUM 103 MMOL/L (96-112); CO2 (CARBON DIOXIDE) 23 MMOL/L (24-34); CREATININE 0.66 MG/DL (0.55-1.02); GFR AFRICAN AMERICAN 115 ML/MIN (>=60); GFR NON AFRICAN AMERICAN 99 ML/MIN (>=60); POTASSIUM, SERUM 4.3 MMOL/L (3.5-5.3); SODIUM, SERUM 134 MMOL/L (135-148)
[2017-03-25 05:12] LABS: GLUCOSE, SERUM 129 MG/DL (60-99)
[2017-03-25 05:20] LABS: MANUAL DIFF NO %
[2017-03-25] MEDS ORDERED: HALF81 PO (15:17)
[2017-03-25] MEDS ORDERED: LIPITOR40 PO (15:17)
[2017-03-25] MEDS ORDERED: COREG3 PO (15:18)
[2017-03-25] MEDS ORDERED: SENTAB PO (15:19)
[2017-03-25] MEDS ORDERED: PERCOCET 10/3251 TAB PO (15:21)
[2017-03-25] MEDS ORDERED: VITC500 PO (15:28)
== END 2017-03-25 17:55 | disposition home or self-care (01) | DRG 234 ==
LOC: CORLMH 10:32 → SSU1 14:52 → 5NO 03-19 09:22 → SDC/OF 03-22 11:37 → CVICU 03-22 20:59 → 5NO 03-23 13:00
PROVIDERS: Internal Medicine Cardiovascular Disease; Nurse Practitioner Family; Thoracic Surgery (Cardiothoracic Vascular Surgery)
PROC: 4A023N7 Measurement of Cardiac Sampling and Pressure, Left Heart, Percutaneous Approach (ICD-10-PCS; principal; 2017-03-18)
PROC: B2111ZZ Fluoroscopy of Multiple Coronary Arteries using Low Osmolar Contrast (ICD-10-PCS; 2017-03-18)
PROC: 021309W Bypass Coronary Artery, Four or More Arteries from Aorta with Autologous Venous Tissue, Open Approach (ICD-10-PCS; 2017-03-18)
PROC: 0210099 Bypass Coronary Artery, One Artery from Left Internal Mammary with Autologous Venous Tissue, Open Approach (ICD-10-PCS; 2017-03-18)
PROC: B2151ZZ Fluoroscopy of Left Heart using Low Osmolar Contrast (ICD-10-PCS; 2017-03-18)
PROC: 06BP0ZZ Excision of Right Saphenous Vein, Open Approach (ICD-10-PCS; 2017-03-18)
PROC: 5A1221Z Performance of Cardiac Output, Continuous (ICD-10-PCS; 2017-03-18)
PROC: B246ZZ4 Ultrasonography of Right and Left Heart, Transesophageal (ICD-10-PCS; 2017-03-18)
PROC: 06BP0ZZ Excision of Right Saphenous Vein, Open Approach (ICD-10-PCS; 2017-03-22)
PROC: 021309W Bypass Coronary Artery, Four or More Arteries from Aorta with Autologous Venous Tissue, Open Approach (ICD-10-PCS; 2017-03-22)
PROC: 5A1221Z Performance of Cardiac Output, Continuous (ICD-10-PCS; 2017-03-22)
PROC: 02100Z9 Bypass Coronary Artery, One Artery from Left Internal Mammary, Open Approach (ICD-10-PCS; 2017-03-22)
PROC: B246ZZ4 Ultrasonography of Right and Left Heart, Transesophageal (ICD-10-PCS; 2017-03-22)
DX: I21.4 Non-ST elevation (NSTEMI) myocardial infarction (principal); Z68.41 Body mass index [BMI] 40.0-44.9, adult; I25.10 Atherosclerotic heart disease of native coronary artery without angina pectoris; I10 Essential (primary) hypertension; E78.5 Hyperlipidemia, unspecified; Z90.49 Acquired absence of other specified parts of digestive tract; Z96.651 Presence of right artificial knee joint; Z87.891 Personal history of nicotine dependence; E11.9 Type 2 diabetes mellitus without complications; E66.9 Obesity, unspecified; Z79.4 Long term (current) use of insulin; E66.01 Morbid (severe) obesity due to excess calories
CPT/HCPCS: 36415; 71010; 71020; 80048; 80053; 81001; 82330; 82803; 82805; 82947; 82962; 83036; 83540; 83550; 83735; 84132; 84295; 84439; 84443; 84484; 85014; 85018; 85025; 85049; 85347; 85610; 85730; 86850; 86900; 86901; 86920; 87641; 93005; 93312; 93320; 93325; 93458; 93880; 94002; 94640; 94660; 94770; 99152; A9270-GY; C1713; C1725; C1769; C1887; C1894; J0690; J1644; J1885; J2150; J2250; J2370; J2405; J2440; J2720; J2765; J2795; J2930; J3010; J3370; J3475; J3480; P9045; P9047; Q9967